=== PATIENT | male | born 1975 | race Caucasian/White ===

== ENCOUNTER 2022-05-17 15:35 | Observation (INO) ==
--- NOTE | 2022-05-17 17:26 | XRay Report ---
XR chest 1V not portable HISTORY: Sepsis COMPARISON: None. FINDINGS: The lungs are clear. Cardiac silhouette is normal in size. No pleural effusions. No pneumot horax. IMPRESSION: No acute process. ACT 112: Negative or not required by law. Electronically signed by: Chong Dangelo M.D. 05/17/2022 5:23 PM
[2022-05-17 19:52] LABS: Basophils # (auto) 0.03 K/uL (0-0.2); Basophils % (auto) 0.4 %; Eosinophils # (auto) 0.41 K/uL (0-0.50); Eosinophils % (auto) 5.7 %; Hematocrit (blood only) 43.1 % (42.0-52.0); Hemoglobin 14.6 g/dl (14.0-18.0); Immature Granulocytes # (auto) 0.02 K/uL (0.01-0.20); Immature Granulocytes % (auto) 0.3 %; Lymphocytes # (auto) 1.66 K/uL (1.2-3.4); Lymphocytes % (auto) 23.2 %; Mean Corpuscular Hemoglobin 29.9 pg (25.0-34.0); Mean Corpuscular Hgb Conc 33.9 g/dL (32.0-36.0); Mean Corpuscular Volume 88.1 fL (80.0-100.0); Mean Platelet Volume 9.9 fL (9.4-12.4); Monocytes # (auto) 0.65 K/uL (0.11-0.59); Monocytes % (auto) 9.1 %; Neutrophils # (auto) 4.37 K/uL (1.40-6.50); Neutrophils % (auto) 61.3 %; Platelet Count 248 K/uL (130-400); RDW Coefficient of Variation 12.6 % (11.5-14.5); RDW Standard Deviation 40.3 fL (36.4-46.3); Red Blood Count 4.89 M/uL (4.70-6.10); White Blood Count 7.14 K/ul (4.8-10.8)
[2022-05-17 20:08] LABS: Albumin Globulin Ratio 1.2 (0.9-2); Albumin Level 4.4 gm/dl (3.4-5.0); Bilirubin,Total 0.4 mg/dl (0.2-1.0); Calcium 9.5 mg/dl (8.6-10.3); Creatinine Clr Calc Pharmacy 178.4 ml/min; Est GFR (African American) 123.9 ml/min; Est GFR (Non-African American) 106.9 ml/min; Globulin 3.6 gm/dl (2.5-4.0); Potassium 3.9 mmol/L (3.5-5.1)
[2022-05-17 20:20] LABS: Partial Thromboplastin Time 28.2 Seconds (21.0-31.0); Prothrombin Time 10.9 Seconds (9.0-12.0)
[2022-05-17] MEDS ORDERED: DAPTOmycin 325 MG in SYRINGE 0 ML IV SCH (20:30)
--- NOTE | 2022-05-17 20:52 | Emergency Department Note ---
Impression & Plan Cellulitis of leg, right ED Provider Note INFORMANT: Patient ED PROVIDER(S): Shad Croft DO CHIEF COMPLAINT: Right leg cellulitis PLAN: Disposition: Admission Outpatient prescription management: none Discussion with: I spoke with the hospitalist, who will see the patient for admission/observation and further evaluation and consultation. MEDICAL DECISION MAKING: This is a 46-year-old male who presents to the ED with a chief complaint of concerns about right-sided leg cellulitis. The patient states that he had cellulitis a couple of weeks ago. He was placed on a 14-day course of doxycycline. He states that he is currently on the doxycycline. It seemed to improve transiently but worsened since Friday. He states that the redness has been increasingly worse since Friday despite the doxycycline. He also reports some discharge from a couple of places and lower extremity. No fevers. No nausea or vomiting. Presents today for evaluation. Exam reveals erythema, increased warmth and some edema. EKG shows a normal sinus rhythm. Lactic acid was negative. Procalcitonin was negative. Chest x-ray was negative for acute disease. CBC was normal. No leukocytosis or anemia. The patient was started on IV daptomycin. He is allergic to clindamycin. The patient will be seen by the hospitalist for further evaluation and care. Triage Nursing notes reviewed. Vital Signs: reviewed Prior /Outside records reviewed: none Differential diagnosis: Diagnostics, as interpreted by me: 12 lead ECG: Normal sinus rhythm rate of 79. No ST elevation. No PVCs. Normal QTc. Cardiac Monitoring ordered: none Medical decision rules: none Imaging studies: Chest x-ray: No acute disease. No pneumonia Procedures: none. Critical care: none. HPI: See MDM above. PAST MEDICAL HISTORY: See Below PAST SURGICAL HISTORY: See Below SOCIAL HISTORY: See Below HOME MEDICATIONS: See Below ALLERGIES: See Below VITALS: See Below PHYSICAL EXAMINATION: See MDM for positive findings otherwise unremarkable. CONSTITUTIONAL/VITAL SIGNS: Reviewed GENERAL:done as appropriate INTEGUMENTARY: done as appropriate HEAD: done as appropriate EYES: done as appropriate RESPIRATORY: done as appropriate CARDIOVASCULAR:done as appropriate GI/ABDOMEN:done as appropriate EXTREMITIES: done as appropriate NEUROLOGICAL: done as appropriate PSYCHIATRIC:done as appropriate MUSCULOSKELETAL:done as appropriate TRIAGE NURSING DOCUMENTATION REVIEWED. Past Med/Surg History Medical History (Updated 05/17/22 @ 20:52 by Shad Croft DO) Alcohol use Anxiety Asthma Bulging lumbar disc Depression HTN (hypertension) Obesity Sleep apnea Tobacco use disorder Surgical History Hx of appendectomy Family History Father Alcohol abuse Anxiety Drug abuse Hypertension Depression Brother Alcohol abuse Drug abuse Grandfather Alcohol abuse Mother Depression Social History Smoking Status: Never smoker Hx Alcohol Use: Yes Preferred Language: Tanzanian marital status: Current Living Situation: Spouse current occupational status: employed Feels Safe at Home: Yes Childhood Exposure to Second-Hand Smoke: Yes Dental Care, Regularly: Yes Physical Activity Frequency: Does not Exercise Seatbelt Use: always Allergies Allergies Allergy/AdvReac Type Severity Reaction Status Date / Time clindamycin Allergy Mild HIVES Verified 05/17/22 20:41 Home Meds Home Medications Medication Instructions Recorded Confirmed No Known Home Medications 05/17/22 05/17/22 Results & Data (ED) Vital Signs Vital Signs - 24 hr 05/17/22 15:51 05/17/22 19:11 05/17/22 18:35 Temperature 36.6 C Temperature Source Temporal Artery Scan Pulse Rate 96 H 78 Pulse Rate [Apical] Respiratory Rate 16 Respiratory Effort / Characteristics Respiratory Depth Normal Blood Pressure 159/94 H Blood Pressure [Right Arm] Blood Pressure Mean 115 Blood Pressure Mean [Right Arm] Pulse Oximetry 97 99 Oxygen Delivery Method Room Air Room Air Sepsis Recent Fever Within 48 Hours No Sepsis New/Unexplained Change in Mental Status No Sepsis Action Taken by Nursing No Action Required 05/17/22 18:35 05/17/22 19:26 05/17/22 19:24 Temperature Temperature Source Pulse Rate Pulse Rate [Apical] 77 78 Respiratory Rate 18 18 Respiratory Effort / Characteristics Non-Labored Non-Labored Spontaneous Respiratory Depth Normal Normal Blood Pressure Blood Pressure [Right Arm] 133/76 133/76 Blood Pressure Mean Blood Pressure Mean [Right Arm] 95 95 Pulse Oximetry 98 98 98 Oxygen Delivery Method Room Air Room Air Room Air Sepsis Recent Fever Within 48 Hours Sepsis New/Unexplained Change in Mental Status Sepsis Action Taken by Nursing Laboratory Data 05/17/22 19:10 05/17/22 19:10 Lab Results 05/17/22 05/17/2205/17/23 Range/Units 19:10 19:10 19:10 WBC 7.14 (4.8-10.8) K/ul RBC 4.89 (4.70-6.10) M/uL Hgb 14.6 (14.0-18.0) g/dl Hct 43.1 (42.0-52.0) % MCV 88.1 (80.0-100.0) fL MCH 29.9 (25.0-34.0) pg MCHC 33.9 (32.0-36.0) g/dL RDW Std Deviation 40.3 (36.4-46.3) fL RDW Coeff of Conrado 12.6 (11.5-14.5) % Plt Count 248 (130-400) K/uL MPV 9.9 (9.4-12.4) fL Immature Gran % (Auto) 0.3 % Neut % (Auto) 61.3 % Lymph % (Auto) 23.2 % [place] % (Auto) 9.1 % Eos % (Auto) 5.7 % Baso % (Auto) 0.4 % Neut # (Auto) 4.37 (1.40-6.50) K/uL Lymph # (Auto) 1.66 (1.2-3.4) K/uL [place] # (Auto) 0.65 H (0.11-0.59) K/uL Eos # (Auto) 0.41 (0-0.50) K/uL Baso # (Auto) 0.03 (0-0.2) K/uL Immature Gran # (Auto) 0.02 (0.01-0.20) K/uL PT 10.9 (9.0-12.0) Seconds INR 1.0 (0.9-1.1) APTT 28.2 (21.0-31.0) Seconds PTT Ratio 1.0 Sodium 140 (136-145) mmol/L Potassium 3.9 (3.5-5.1) mmol/L Chloride 106 (98-107) mmol/L Carbon Dioxide 27 (21-32) mmol/L Anion Gap 7 (3-11) BUN 15 (6-23) mg/dl Creatinine 0.79 (0.6-1.4) mg/dl Est Cr Clr Drug Dosing 178.4 ml/min Est GFR ( Amer) 123.9 ml/min Est GFR (Non-Af Amer) 106.9 ml/min BUN/Creatinine Ratio 19.0 (10-20) Glucose 90 (70-99(Fasting)) mg/dl Lactate (0.4-2.0) mmol/L Calcium 9.5 (8.6-10.3) mg/dl Magnesium 2.0 (1.7-2.4) mg/dl Total Bilirubin 0.4 (0.2-1.0) mg/dl AST 43 H (13-39) U/L ALT 34 (7-52) U/L Alkaline Phosphatase 62 (34-104) U/L Total Protein 8.0 (6.0-8.3) gm/dl Albumin 4.4 (3.4-5.0) gm/dl Globulin 3.6 (2.5-4.0) gm/dl Albumin/Globulin Ratio 1.2 (0.9-2) Procalcitonin (0-0.5) ng/ml 05/17/22 05/17/22 Range/Units 19:10 19:10 WBC (4.8-10.8) K/ul RBC (4.70-6.10) M/uL Hgb (14.0-18.0) g/dl Hct (42.0-52.0) % MCV (80.0-100.0) fL MCH (25.0-34.0) pg MCHC (32.0-36.0) g/dL RDW Std Deviation (36.4-46.3) fL RDW Coeff of Conrado (11.5-14.5) % Plt Count (130-400) K/uL MPV (9.4-12.4) fL Immature Gran % (Auto) % Neut % (Auto) % Lymph % (Auto) % [place] % (Auto) % Eos % (Auto) % Baso % (Auto) % Neut # (Auto) (1.40-6.50) K/uL Lymph # (Auto) (1.2-3.4) K/uL [place] # (Auto) (0.11-0.59) K/uL Eos # (Auto) (0-0.50) K/uL Baso # (Auto) (0-0.2) K/uL Immature Gran # (Auto) (0.01-0.20) K/uL PT (9.0-12.0) Seconds INR (0.9-1.1) APTT (21.0-31.0) Seconds PTT Ratio Sodium (136-145) mmol/L Potassium (3.5-5.1) mmol/L Chloride (98-107) mmol/L Carbon Dioxide (21-32) mmol/L Anion Gap (3-11) BUN (6-23) mg/dl Creatinine (0.6-1.4) mg/dl Est Cr Clr Drug Dosing ml/min Est GFR ( Amer) ml/min Est GFR (Non-Af Amer) ml/min BUN/Creatinine Ratio (10-20) Glucose (70-99(Fasting)) mg/dl Lactate 1.7 (0.4-2.0) mmol/L Calcium (8.6-10.3) mg/dl Magnesium (1.7-2.4) mg/dl Total Bilirubin (0.2-1.0) mg/dl AST (13-39) U/L ALT (7-52) U/L Alkaline Phosphatase (34-104) U/L Total Protein (6.0-8.3) gm/dl Albumin (3.4-5.0) gm/dl Globulin (2.5-4.0) gm/dl Albumin/Globulin Ratio (0.9-2) Procalcitonin < 0.05 (0-0.5) ng/ml Imaging Data Radiologist's Impression: Chest X-Ray 05/17/22 15:54 XR chest 1V not portable HISTORY: Sepsis COMPARISON: None. FINDINGS: The lungs are clear. Cardiac silhouette is normal in size. No pleural effusions. No pneumothorax. IMPRESSION: No acute process. ACT 112: Negative or not required by law. Electronically signed by: Chong Dangelo M.D. 05/17/2022 5:23 PM Discharge Plan Visit Data Chief Complaint: Leg Injury/Pain Stated Complaint: CELLULITUS IN LEG ED Provider: Shad Croft Discharge Problem: Cellulitis of leg, right Forms Stand Alone Forms: [facility] [employer] Prescriptions Prescriptions: No Action No Known Home Medications Referrals Referrals: Ugo Swann MD [Primary Care Provider] -
[2022-05-17] MEDS ORDERED: CEFEPIME 2,000 MG/20 ML VIAL IV STA (20:56)
--- NOTE | 2022-05-17 20:57 | History & Physical Report ---
Date of Service May 17, 2022 Assessment & Plan (1) Cellulitis of leg, right: Plan: 46-year-old male with history of newly diagnosed diabetes presenting with right lower extremity cellulitis. Patient is afebrile, nontoxic in appearance. He reports that the redness, swelling and tenderness of his right lower extremity has worsened despite being on oral doxycycline. He also reports small abscesses on his LE which have broken open - purulent fluid. Observation to medical Continue daptomycin Continue cefepime for now Mick area of cellulitis daily Tylenol as needed for pain or fever (2) Diabetes: Plan: Patient with newly diagnosed diabetes approximately 1 year ago. He reports that he is not taking any medication at this time. He has been using [id number] supplements such as cinnamon to help regulate his blood sugar. Blood sugar controlled at this time at 90 Consult cosmetology educator Check HgbA1C -Check Lipid panel Patient may need assistance establishing with a new PCP. He lives in [place]. (3) Sleep apnea: Plan: Patient does not use CPAP (4) HTN (hypertension): Plan: Mildly elevated blood pressure at present. Patient does not take any medications for blood pressure at this time Continue to monitor F/E/NHep-Lock, monitor electrolytes and replete as needed, carb consistent diet as tolerated Prophylaxisencourage ambulation Codefull per discussion with patient Disposition Observation to medical History of Present Illness Chief Complaint: RLE cellulitis Primary Care Provider: Ugo Swann MD Wali Pearson is a 46yo male with history of HTN, Asthma, newly diagnosed DM presenting with RLE cellulitis. Patient gets frequent tinea pedis in fections. He reports that when he has a tinea infection he frequently develops cellulitis in his RLE. Patient has had several days of worsening RLE warmth, redness and swelling. He reports developing a small abscess on his posterior calf. He was seen at [facility] approximate 2 and half weeks ago and was prescribed antibioticdoxycycline, which he has taken. He reports developing several more abscesses that opened and drained a small amount of purulent liquid. as prescribed patient denies trauma to the leg. Denies fever, chills, nausea, malaise. Denies chest pain, shortness of breath, cough. No additional complaints at this time. Concerned that his cellulitis is worsening despite treatment with doxycycline Patient was recently diagnosed with type 2 diabetes approximately 1 year ago. He reports he has been prescribed metformin which she does not take. He has been using cinnamon supplements and changing his diet in hopes to control his blood sugar. He has not seen his PCP for some time. Reports he has not received education on his diabetes management. In the ER, he is afebrile hemodynamically stable and nontoxic in appearance. ER course: Daptomycin Cefepime Allergies Allergy/AdvReac Type Severity Reaction Status Date / Time clindamycin Allergy Mild HIVES Verified 05/17/22 20:41 Home Medications Medication Instructions Recorded Confirmed Type No Known Home Medications 05/17/22 05/17/22 History Past Med/Surg History Medical History (Updated 05/18/22 @ 00:43 by Sanaz Wright DO) Alcohol use Anxiety Asthma Bulging lumbar disc Depression Diabetes HTN (hypertension) Obesity Sleep apnea Tobacco use disorder Surgical History Hx of appendectomy Family History Father Alcohol abuse Anxiety Drug abuse Hypertension Depression Brother Alcohol abuse Drug abuse Grandfather Alcohol abuse Mother Depression Social History Smoking Status: Never smoker Second Hand Exposure: No; Do You Dip or Chew Tobacco: No; Hx Alcohol Use: Yes Alcohol type: beer Hx Substance Use: Yes Last Used Substance Other:: occasionally Preferred Language: Yoruba Communication Ability: Effective Landscape Laborer Required: No Beliefs That Will Affect Care: None marital status: Current Living Situation: Alone current occupational status: employed Other Information That Helps Us Care for You: No Feels Safe at Home: Yes Safety Concerns: Feels Safe At This Time Childhood Exposure to Second-Hand Smoke: Yes Dental Care, Regularly: Yes Physical Activity Frequency: Does not Exercise Seatbelt Use: always Assistive Devices: Cane Assistive Devices Comment: uses cane occasional when cellulitis is bothering him Review of Systems Review of Systems: All systems reviewed & are unremarkable except as noted in HPI & below Physical Exam Physical Exam: General: patient resting comfortably, NAD, non-toxic in appearance, AA&O x 4 HEENT: NC/AT, PERRL, EOMI, anicteric sclera, conjunctiva without injection, external ear normal to inspection and nontender, nares patent, moist mucus membranes, dentition intact, no oropharyngeal lesions, neck supple, trachea midline, no LAD, no thyromegaly, no JVD Heart: +S1/S2, regular, no m/r/g Lungs: equal air entry bilaterally, no rales/rhonchi/wheezes Abd: +BS, soft, NT/ND, no masses/organomegaly/ascites Ext: warm, 2+ pulses in UE/LE bilaterally, no clubbing/cyanosis. Trace edema of bilateral lower extremities, right lower extremity red, warm and tender to the touch.No crepitus, bullae or lymphangitis Neuro: nonfocal, patient AA&O x 4, speech intact, no facial droop, moving all extremities on command with equal strength 5/5 Results & Data Results & Data Vital Signs (Past 12 Hours) Vital Signs Temp Pulse Pulse Resp BP BP Pulse Ox 05/17/22 19:24 78 18 133/76 98 05/17/22 19:26 77 18 133/76 98 05/17/22 18:35 98 05/17/22 18:35 99 05/17/22 19:11 78 05/17/22 15:51 36.6 C 96 H 16 159/94 H 97 O2 Del Method 05/17/22 19:24 Room Air 05/17/22 19:26 Room Air 05/17/22 18:35 Room Air 05/17/22 18:35 Room Air 05/17/22 19:11 05/17/22 15:51 Room Air Laboratory Results Laboratory Results WBC 7.14 K/ul (4.8-10.8) 05/17/22 19:10 RBC 4.89 M/uL (4.70-6.10) 05/17/22 19:10 Hgb 14.6 g/dl (14.0-18.0) 05/17/22 19:10 Hct 43.1 % (42.0-52.0) 05/17/22 19:10 MCV 88.1 fL (80.0-100.0) 05/17/22 19:10 MCH 29.9 pg (25.0-34.0) 05/17/22 19:10 MCHC 33.9 g/dL (32.0-36.0) 05/17/22 19:10 RDW Std Deviation 40.3 fL (36.4-46.3) 05/17/22 19:10 RDW Coeff of Conrado 12.6 % (11.5-14.5) 05/17/22 19:10 Plt Count 248 K/uL (130-400) 05/17/22 19:10 MPV 9.9 fL (9.4-12.4) 05/17/22 19:10 Immature Gran % (Auto) 0.3 % 05/17/22 19:10 Neut % (Auto) 61.3 % 05/17/22 19:10 Lymph % (Auto) 23.2 % 05/17/22 19:10 [place] % (Auto) 9.1 % 05/17/22 19:10 Eos % (Auto) 5.7 % 05/17/22 19:10 Baso % (Auto) 0.4 % 05/17/22 19:10 Neut # (Auto) 4.37 K/uL (1.40-6.50) 05/17/22 19:10 Lymph # (Auto) 1.66 K/uL (1.2-3.4) 05/17/22 19:10 [place] # (Auto) 0.65 K/uL (0.11-0.59) H 05/17/22 19:10 Eos # (Auto) 0.41 K/uL (0-0.50) 05/17/22 19:10 Baso # (Auto) 0.03 K/uL (0-0.2) 05/17/22 19:10 Immature Gran # (Auto) 0.02 K/uL (0.01-0.20) 05/17/22 19:10 PT 10.9 Seconds (9.0-12.0) 05/17/22 19:10 INR 1.0 (0.9-1.1) 05/17/22 19:10 APTT 28.2 Seconds (21.0-31.0) 05/17/22 19:10 PTT Ratio 1.0 05/17/22 19:10 Sodium 140 mmol/L (136-145) 05/17/22 19:10 Potassium 3.9 mmol/L (3.5-5.1) 05/17/22 19:10 Chloride 106 mmol/L (98-107) 05/17/22 19:10 Carbon Dioxide 27 mmol/L (21-32) 05/17/22 19:10 Anion Gap 7 (3-11) 05/17/22 19:10 BUN 15 mg/dl (6-23) 05/17/22 19:10 Creatinine 0.79 mg/dl (0.6-1.4) 05/17/22 19:10 Est Cr Clr Drug Dosing 178.4 ml/min 05/17/22 19:10 Est GFR ( Amer) 123.9 ml/min 05/17/22 19:10 Est GFR (Non-Af Amer) 106.9 ml/min 05/17/22 19:10 BUN/Creatinine Ratio 19.0 (10-20) 05/17/22 19:10 Glucose 90 mg/dl (70-99(Fasting)) 05/17/22 19:10 Lactate 1.7 mmol/L (0.4-2.0) 05/17/22 19:10 Calcium 9.5 mg/dl (8.6-10.3) 05/17/22 19:10 Magnesium 2.0 mg/dl (1.7-2.4) 05/17/22 19:10 Total Bilirubin 0.4 mg/dl (0.2-1.0) 05/17/22 19:10 AST 43 U/L (13-39) H 05/17/22 19:10 ALT 34 U/L (7-52) 05/17/22 19:10 Alkaline Phosphatase 62 U/L (34-104) 05/17/22 19:10 Total Protein 8.0 gm/dl (6.0-8.3) 05/17/22 19:10 Albumin 4.4 gm/dl (3.4-5.0) 05/17/22 19:10 Globulin 3.6 gm/dl (2.5-4.0) 05/17/22 19:10 Albumin/Globulin Ratio 1.2 (0.9-2) 05/17/22 19:10 Procalcitonin < 0.05 ng/ml (0-0.5) 05/17/22 19:10 SARS-CoV-2, RNA, NAAT NEGATIVE (NEGATIVE) 05/17/22 21:05 Impressions Chest X-Ray 05/17/22 15:54 XR chest 1V not portable HISTORY: Sepsis COMPARISON: None. FINDINGS: The lungs are clear. Cardiac silhouette is normal in size. No pleural effusions. No pneumothorax. IMPRESSION: No acute process. ACT 112: Negative or not required by law. Electronically signed by: Chong Dangelo M.D. 05/17/2022 5:23 PM PG Care Time/CCT Total # of Minutes Spent Total Time Spent with Patient: Total time spent is greater than 50% in coordination of care (as documented) at patient's floor/unit and/or counseling patient: Coding Level of Care Code 44600 INT INP/OBS CARE 2/55MIN Diagnoses Cellulitis of leg, right L03.115 Diabetes E11.9 Sleep apnea G47.30 HTN (hypertension) I10
[2022-05-17] MEDS ORDERED: GLUCOSE 10 TAB/TUBE PO PRN (23:10)
[2022-05-17] MEDS ORDERED: GLUCAGON FOR INJ 1 MG VIAL SQ PRN (23:10)
[2022-05-17] MEDS ORDERED: GLUCOSE 40% GEL 15 GM TUBE PO PRN (23:10)
[2022-05-17] MEDS ORDERED: CARBOHYDRATES FOR HYPOGLYCEMIA PO PRN (23:10)
[2022-05-17] MEDS ORDERED: DEXTROSE 50% 50 ML SYRINGE IV PRN (23:10)
[2022-05-17] MEDS ORDERED: ONDANSETRON INJ 2 MG/ML 2 ML VIAL IV PRN (23:10)
[2022-05-17] MEDS ORDERED: DAPTOmycin 125 MG in SYRINGE 0 ML IV ONE (23:45)
[2022-05-18] MEDS: ACETAMINOPHEN 325 MG TAB PO PRN (05:39)
[2022-05-18 07:59] LABS: Hematocrit (blood only) 40.3 % (42.0-52.0); Hemoglobin 13.6 g/dl (14.0-18.0); Mean Corpuscular Hemoglobin 29.4 pg (25.0-34.0); Mean Corpuscular Hgb Conc 33.7 g/dL (32.0-36.0); Mean Platelet Volume 9.8 fL (9.4-12.4); Platelet Count 209 K/uL (130-400); RDW Coefficient of Variation 12.5 % (11.5-14.5); RDW Standard Deviation 39.5 fL (36.4-46.3); Red Blood Count 4.63 M/uL (4.70-6.10); White Blood Count 6.77 K/ul (4.8-10.8)
[2022-05-18 08:23] LABS: Albumin Level 3.7 gm/dl (3.4-5.0); BUN Creatinine Ratio 14.5 (10-20); Bilirubin Direct 0.1 mg/dl (0-0.2); Bilirubin,Total 0.7 mg/dl (0.2-1.0); Calcium 8.7 mg/dl (8.6-10.3); Chol HDL Ratio 2.6 (0-5); Creatinine Clr Calc Pharmacy 175.4 ml/min; Est GFR (African American) 121.4 ml/min; Est GFR (Non-African American) 104.8 ml/min; Potassium 3.8 mmol/L (3.5-5.1); Total Protein 6.8 gm/dl (6.0-8.3)
[2022-05-18 08:59] LABS: C Reactive Protein 1.24 mg/dl (0-0.5)
--- NOTE | 2022-05-18 09:02 | Hospitalist Progress Note ---
Date of Service May 18, 2022 Assessment & Plan (1) Cellulitis of leg, right: Plan: 46-year-old male with history of newly diagnosed diabetes presenting with right lower extremity cellulitis. Patient is afebrile, nontoxic in appearance. He reports that the redness, swelling and tenderness of his right lower extremity has worsened despite being on oral doxycycline. He also reports small abscesses on his LE which have broken open - purulent fluid. Patient reported having old rx for DOxy, taking. Seen at [place], abscess not yet broken open but US performed reportedly and given Doxy for abscess and told good penetration. Prior cx w/ Pseudomonas/Group B beta strep in Oct 2018 Remains on Dapto/Cefepime as started on admission WBC wnl, afebrile Blood cultures pending Marked area cellulitis, within markings Pain control/antiemetics prn Asked RN to culture drainage from RLE -- monitor culture/tailor abx as appropriate added ESR/CRP and elevated 30/1.[address] LE for further eval of abscess/ortho consult pending results Consideration for dose lasix as well to assist with swelling in AM but will monitor kidney function given contrast Asked RN to elevate RLE w/ pillow Monitor labs in AM/clinical improvement on repeat exams (2) Diabetes: Plan: Patient with newly diagnosed diabetes approximately 1 year ago., BSGs in 230s at that time and quit soda/ice cream and recently running in 120s per patient. Has been using OTC like cinnamon to help w/ regulation, not on any rx meds A1c 6.0 on AM labs Lipid panel w/ excellent control -- TRG 35, Chol 80, HDL 31 DM educator consulted however again, excellent control Will ask CM to assist with arranging new PCP in follow up (lives in [place], of note just passed from covid - may need to consider SSRI/remeron/etc) (3) Sleep apnea: Plan: Patient does not use CPAP rec f/u (4) HTN (hypertension): Plan: BP 133/80 currently and stable (elevated on admit in setting of pain -- 159/94) Doesn't take any meds at baseline -- monitor/will need new PCP. No significant LVH on admitting EKG Plan continued inpatient stay on abx/ monitor cultures obtain CT of leg for further eval/possible ortho consult if needed CM to assist w/ arranging new PCP Admission and Anticipated Discharge Date Admission Date: May 17, 2022 Supervising Physician Co-Signing Physician Notes The patient was not seen by me. The chart was reviewed. Case discussed with ZEINAB Odonnell. Agree with assessment and plan Subjective Eval this morning, doing alright. Pain w/ ambulation to bathroom, improving once leg back up in bed. Discussed pillow for elevation. He has hx cellulitis, denies any trauma/injury. Had Doxy leftover and was taking and see at [facility], believes had US and showed abscess and sent on PO Doxy. Took course and was getting a little better but then abscess on back of leg opened up and has not had any improvement since that time. Discussed obtaining CT imaging for further eval, cx obtained this morning. Never had abscesses like this before. Has two openings to anterior hamilton and one posteriorly. No fever, chills, chest pain, shortness of breath. Anxious about his dogs at home but quirino checking on them currently, didn't anticipate staying long. Hopefully will be able to get CT/monitor cultures/elevate and have more info for tomorrow but possible dc in next 24-48 hours, but could be more like Friday. Patient understood, agreeable to plan. Questions/concerns addressed at this time. Review of Systems Review of Systems: All systems reviewed & are unremarkable except as noted in HPI & below Physical Exam Physical Exam: General: WD/WN obese male sleeping upon entry, NAD HEENT: head normocephalic, atraumatic Resp: diminished in bases, no w/c, on room air, speaking in complete sentences, no distress CV: RRR, no significant m/r/g, LE edema (RLE>LLE 2nd to cellulitis, pulses palpable but diminished in setting of swelling) GI: +BS, obese, nontender : no mcgowan MSK/Neuro/skin: no focal deficit, no facial droop/slurred speech RLE with swelling, violacious color surrounding multiple wounds -- 2 opening to anterior hamilton (optifoam in place, yellowish drainage on dressing), and 1 posterior calf (similarly appearing), skin tense/swollen, slight warmth, erythema within markings Psych: AOx3, pleasant and cooperative with care but disappointed about staying Results & Data Results & Data Vital Signs (Past 12 Hours) Vital Signs Temp Pulse Pulse Pulse Resp BP BP 05/18/22 07:39 36.5 C 63 16 133/80 05/17/22 22:45 36.6 C 62 18 145/87 H 05/17/22 22:30 71 18 164/95 H 05/17/22 22:00 68 16 Pulse Ox O2 Del Method 05/18/22 07:39 95 Room Air 05/17/22 22:45 97 Room Air 05/17/22 22:30 97 Room Air 05/17/22 22:00 97 Room Air Laboratory Results 05/18/22 05/18/22 05/18/22 Range/Units 12:05 08:17 07:25 WBC (4.8-10.8) K/ul RBC (4.70-6.10) M/uL Hgb (14.0-18.0) g/dl Hct (42.0-52.0) % MCV (80.0-100.0) fL MCH (25.0-34.0) pg MCHC (32.0-36.0) g/dL RDW Std Deviation (36.4-46.3) fL RDW Coeff of [place]rado (11.5-14.5) % Plt Count (130-400) K/uL MPV (9.4-12.4) fL Immature Gran % (Auto) % Neut % (Auto) % Lymph % (Auto) % [place] % (Auto) % Eos % (Auto) % Baso % (Auto) % Neut # (Auto) (1.40-6.50) K/uL Lymph # (Auto) (1.2-3.4) K/uL [place] # (Auto) (0.11-0.59) K/uL Eos # (Auto) (0-0.50) K/uL Baso # (Auto) (0-0.2) K/uL Immature Gran # (Auto) (0.01-0.20) K/uL ESR 30 H (0-15) mm/hr PT (9.0-12.0) Seconds INR (0.9-1.1) APTT (21.0-31.0) Seconds PTT Ratio Sodium (136-145) mmol/L Potassium (3.5-5.1) mmol/L Chloride (98-107) mmol/L Carbon Dioxide (21-32) mmol/L Anion Gap (3-11) BUN (6-23) mg/dl Creatinine (0.6-1.4) mg/dl Est Cr Clr Drug Dosing ml/min Est GFR ( Amer) ml/min Est GFR (Non-Af Amer) ml/min BUN/Creatinine Ratio (10-20) Glucose (70-99(Fasting)) mg/dl POC Glucose 117 H 95 (70-99) mg/dl Estimat Average Glucose mg/dl Hemoglobin A1c (4.5-5.6) % Lactate (0.4-2.0) mmol/L Calcium (8.6-10.3) mg/dl Magnesium (1.7-2.4) mg/dl Total Bilirubin (0.2-1.0) mg/dl Direct Bilirubin (0-0.2) mg/dl AST (13-39) U/L ALT (7-52) U/L Alkaline Phosphatase (34-104) U/L C-Reactive Protein (0-0.5) mg/dl Total Protein (6.0-8.3) gm/dl Albumin (3.4-5.0) gm/dl Globulin (2.5-4.0) gm/dl Albumin/Globulin Ratio (0.9-2) Triglycerides (0-150) mg/dl Cholesterol (0-200) mg/dl LDL Cholesterol, Calc mg/dl VLDL Cholesterol, Calc (0-30) mg/dl HDL Cholesterol mg/dl Cholesterol/HDL Ratio (0-5) Procalcitonin (0-0.5) ng/ml SARS-CoV-2, RNA, NAAT (NEGATIVE) 05/18/22 05/18/22 05/18/22 Range/Units 07:25 07:25 07:25 WBC 6.77 (4.8-10.8) K/ul RBC 4.63 L (4.70-6.10) M/uL Hgb 13.6 L (14.0-18.0) g/dl Hct 40.3 L (42.0-52.0) % MCV 87.0 (80.0-100.0) fL MCH 29.4 (25.0-34.0) pg MCHC 33.7 (32.0-36.0) g/dL RDW Std Deviation 39.5 (36.4-46.3) fL RDW Coeff of Conrado 12.5 (11.5-14.5) % Plt Count 209 (130-400) K/uL MPV 9.8 (9.4-12.4) fL Immature Gran % (Auto) % Neut % (Auto) % Lymph % (Auto) % [place] % (Auto) % Eos % (Auto) % Baso % (Auto) % Neut # (Auto) (1.40-6.50) K/uL Lymph # (Auto) (1.2-3.4) K/uL [place] # (Auto) (0.11-0.59) K/uL Eos # (Auto) (0-0.50) K/uL Baso # (Auto) (0-0.2) K/uL Immature Gran # (Auto) (0.01-0.20) K/uL ESR (0-15) mm/hr PT (9.0-12.0) Seconds INR (0.9-1.1) APTT (21.0-31.0) Seconds PTT Ratio Sodium 139 (136-145) mmol/L Potassium 3.8 (3.5-5.1) mmol/L Chloride 105 (98-107) mmol/L Carbon Dioxide 30 (21-32) mmol/L Anion Gap 4 (3-11) BUN 12 (6-23) mg/dl Creatinine 0.83 (0.6-1.4) mg/dl Est Cr Clr Drug Dosing 175.4 ml/min Est GFR ( Amer) 121.4 ml/min Est GFR (Non-Af Amer) 104.8 ml/min BUN/Creatinine Ratio 14.5 (10-20) Glucose 96 (70-99(Fasting)) mg/dl POC Glucose (70-99) mg/dl Estimat Average Glucose 126 mg/dl Hemoglobin A1c 6.0 H (4.5-5.6) % Lactate (0.4-2.0) mmol/L Calcium 8.7 (8.6-10.3) mg/dl Magnesium (1.7-2.4) mg/dl Total Bilirubin 0.7 (0.2-1.0) mg/dl Direct Bilirubin 0.1 (0-0.2) mg/dl AST 35 (13-39) U/L ALT 28 (7-52) U/L Alkaline Phosphatase 49 (34-104) U/L C-Reactive Protein 1.24 H (0-0.5) mg/dl Total Protein 6.8 (6.0-8.3) gm/dl Albumin 3.7 (3.4-5.0) gm/dl Globulin (2.5-4.0) gm/dl Albumin/Globulin Ratio (0.9-2) Triglycerides 35 (0-150) mg/dl Cholesterol 80 (0-200) mg/dl LDL Cholesterol, Calc 42 mg/dl VLDL Cholesterol, Calc 7 (0-30) mg/dl HDL Cholesterol 31 mg/dl Cholesterol/HDL Ratio 2.6 (0-5) Procalcitonin (0-0.5) ng/ml SARS-CoV-2, RNA, NAAT (NEGATIVE) 05/17/22 05/17/22 05/17/22 Range/Units 21:05 19:10 19:10 WBC (4.8-10.8) K/ul RBC (4.70-6.10) M/uL Hgb (14.0-18.0) g/dl Hct (42.0-52.0) % MCV (80.0-100.0) fL MCH (25.0-34.0) pg MCHC (32.0-36.0) g/dL RDW Std Deviation (36.4-46.3) fL RDW Coeff of Conrado (11.5-14.5) % Plt Count (130-400) K/uL MPV (9.4-12.4) fL Immature Gran % (Auto) % Neut % (Auto) % Lymph % (Auto) % [place] % (Auto) % Eos % (Auto) % Baso % (Auto) % Neut # (Auto) (1.40-6.50) K/uL Lymph # (Auto) (1.2-3.4) K/uL [place] # (Auto) (0.11-0.59) K/uL Eos # (Auto) (0-0.50) K/uL Baso # (Auto) (0-0.2) K/uL Immature Gran # (Auto) (0.01-0.20) K/uL ESR (0-15) mm/hr PT (9.0-12.0) Seconds INR (0.9-1.1) APTT (21.0-31.0) Seconds PTT Ratio Sodium (136-145) mmol/L Potassium (3.5-5.1) mmol/L Chloride (98-107) mmol/L Carbon Dioxide (21-32) mmol/L Anion Gap (3-11) BUN (6-23) mg/dl Creatinine (0.6-1.4) mg/dl Est Cr Clr Drug Dosing ml/min Est GFR ( Amer) ml/min Est GFR (Non-Af Amer) ml/min BUN/Creatinine Ratio (10-20) Glucose (70-99(Fasting)) mg/dl POC Glucose (70-99) mg/dl Estimat Average Glucose mg/dl Hemoglobin A1c (4.5-5.6) % Lactate 1.7 (0.4-2.0) mmol/L Calcium (8.6-10.3) mg/dl Magnesium (1.7-2.4) mg/dl Total Bilirubin (0.2-1.0) mg/dl Direct Bilirubin (0-0.2) mg/dl AST (13-39) U/L ALT (7-52) U/L Alkaline Phosphatase (34-104) U/L C-Reactive Protein (0-0.5) mg/dl Total Protein (6.0-8.3) gm/dl Albumin (3.4-5.0) gm/dl Globulin (2.5-4.0) gm/dl Albumin/Globulin Ratio (0.9-2) Triglycerides (0-150) mg/dl Cholesterol (0-200) mg/dl LDL Cholesterol, Calc mg/dl VLDL Cholesterol, Calc (0-30) mg/dl HDL Cholesterol mg/dl Cholesterol/HDL Ratio (0-5) Procalcitonin < 0.05 (0-0.5) ng/ml SARS-CoV-2, RNA, NAAT NEGATIVE (NEGATIVE) 05/17/22 05/17/22 05/17/22 Range/Units 19:10 19:10 19:10 WBC 7.14 (4.8-10.8) K/ul RBC 4.89 (4.70-6.10) M/uL Hgb 14.6 (14.0-18.0) g/dl Hct 43.1 (42.0-52.0) % MCV 88.1 (80.0-100.0) fL MCH 29.9 (25.0-34.0) pg MCHC 33.9 (32.0-36.0) g/dL RDW Std Deviation 40.3 (36.4-46.3) fL RDW Coeff of Conrado 12.6 (11.5-14.5) % Plt Count 248 (130-400) K/uL MPV 9.9 (9.4-12.4) fL Immature Gran % (Auto) 0.3 % Neut % (Auto) 61.3 % Lymph % (Auto) 23.2 % [place] % (Auto) 9.1 % Eos % (Auto) 5.7 % Baso % (Auto) 0.4 % Neut # (Auto) 4.37 (1.40-6.50) K/uL Lymph # (Auto) 1.66 (1.2-3.4) K/uL [place] # (Auto) 0.65 H (0.11-0.59) K/uL Eos # (Auto) 0.41 (0-0.50) K/uL Baso # (Auto) 0.03 (0-0.2) K/uL Immature Gran # (Auto) 0.02 (0.01-0.20) K/uL ESR (0-15) mm/hr PT 10.9 (9.0-12.0) Seconds INR 1.0 (0.9-1.1) APTT 28.2 (21.0-31.0) Seconds PTT Ratio 1.0 Sodium 140 (136-145) mmol/L Potassium 3.9 (3.5-5.1) mmol/L Chloride 106 (98-107) mmol/L Carbon Dioxide 27 (21-32) mmol/L Anion Gap 7 (3-11) BUN 15 (6-23) mg/dl Creatinine 0.79 (0.6-1.4) mg/dl Est Cr Clr Drug Dosing 178.4 ml/min Est GFR ( Amer) 123.9 ml/min Est GFR (Non-Af Amer) 106.9 ml/min BUN/Creatinine Ratio 19.0 (10-20) Glucose 90 (70-99(Fasting)) mg/dl POC Glucose (70-99) mg/dl Estimat Average Glucose mg/dl Hemoglobin A1c (4.5-5.6) % Lactate (0.4-2.0) mmol/L Calcium 9.5 (8.6-10.3) mg/dl Magnesium 2.0 (1.7-2.4) mg/dl Total Bilirubin 0.4 (0.2-1.0) mg/dl Direct Bilirubin (0-0.2) mg/dl AST 43 H (13-39) U/L ALT 34 (7-52) U/L Alkaline Phosphatase 62 (34-104) U/L C-Reactive Protein (0-0.5) mg/dl Total Protein 8.0 (6.0-8.3) gm/dl Albumin 4.4 (3.4-5.0) gm/dl Globulin 3.6 (2.5-4.0) gm/dl Albumin/Globulin Ratio 1.2 (0.9-2) Triglycerides (0-150) mg/dl Cholesterol (0-200) mg/dl LDL Cholesterol, Calc mg/dl VLDL Cholesterol, Calc (0-30) mg/dl HDL Cholesterol mg/dl Cholesterol/HDL Ratio (0-5) Procalcitonin (0-0.5) ng/ml SARS-CoV-2, RNA, NAAT (NEGATIVE) Diagnostic Findings Chest X-Ray 05/17/22 15:54 XR chest 1V not portable HISTORY: Sepsis COMPARISON: None. FINDINGS: The lungs are clear. Cardiac silhouette is normal in size. No pleural effusions. No pneumothorax. IMPRESSION: No acute process. ACT 112: Negative or not required by law. Electronically signed by: Chong Dangelo M.D. 05/17/2022 5:23 PM PG Care Time/CCT Total # of Minutes Spent Total Time Spent with Patient: Total time spent is greater than 50% in coordination of care (as documented) at patient's floor/unit and/or counseling patient: Coding Level of Care Code 64249 SUB INP/OBS CARE 3/50MIN Diagnoses Cellulitis of leg, right L03.115 Diabetes E11.9 Sleep apnea G47.30 HTN (hypertension) I10
[2022-05-18] MEDS: CEFEPIME 2,000 MG in SYRINGE 0 ML IV SCH ×2 (09:19→21:17)
[2022-05-18 09:46] LABS: Estimated Average Glucose 126 mg/dl
--- NOTE | 2022-05-18 12:24 | Electrocardiogram Report ---
Test Reason : Blood Pressure : / mmHG Vent. Rate : 079 BPM Atrial Rate : 079 BPM P-R Int : 198 ms QRS Dur : 126 ms QT Int : 382 ms P-R-T Axes : 046 -06 022 degrees QTc Int : 438 ms Normal sinus rhythm Non-specific intra-ventricular conduction block Abnormal ECG No previous ECGs available Confirmed by King Faust [id number]) on 05/18/2022 12:24:41 PM Referred By: REFERRED SELF Confirmed By:King Faust
[2022-05-18] MEDS ORDERED: oxyCODONE HCL IR 5 MG TAB (IMMEDIATE RELEASE) PO PRN (14:11)
[2022-05-18] MEDS ORDERED: OPTIRAY 350 100ml IV ONE (15:00)
[2022-05-18] MEDS ORDERED: LORazepam 0.5 MG TAB PO PRN (16:58)
--- NOTE | 2022-05-18 17:43 | CT Scan Report ---
CT SCAN OF THE RIGHT TIBIA AND FIBULA WITH IV CONTRAST CLINICAL HISTORY: Cellulitis. COMPARISON STUDY: No priors. TECHNIQUE: Following the administration of 84 cc of Optiray 350, CT scan of the right tibia and fibul a is performed from the distal femur to the foot. Images are reviewed in the axial, sagittal, and cor onal planes. IV contrast was administered without complication. A dose lowering technique was utilize d adhering to the principles of ALARA. CT DOSE: 289.01 mGy.cm FINDINGS: The skeletal structures are well-mineralized. There is no evidence of right tibial or fibul ar fracture. There is no bony erosion or periostitis. The knee and ankle joints are grossly maintaine d. There is no knee joint effusion. Subcutaneous soft tissue edema and fluid is seen throughout the r ight lower extremity. No organized/drainable fluid collection is seen to indicate abscess. The region al arteries are patent as visualized. The Achilles tendon is intact as seen by CT. There is mild gene ralized atrophy of the regional musculature. No soft tissue gas is seen. Phleboliths are noted in the anterior calf. IMPRESSION: 1. No acute bony abnormality is seen involving the right tibia or fibula. 2. There is evidence of cellulitis throughout the right lower extremity. 3. No organized/drainable fluid collection is seen to suggest abscess. ACT 112: Negative or not required by law. Electronically signed by: Gonzales Bates M.D. 05/18/2022 5:41 PM
[2022-05-18] MEDS: GABAPENTIN 100 MG CAP PO SCH (21:17)
[2022-05-18] MEDS: DAPTOmycin 450 MG in SYRINGE 0 ML IV SCH (21:18)
[2022-05-19 06:46] LABS: Mean Corpuscular Hemoglobin 29.5 pg (25.0-34.0); Mean Corpuscular Hgb Conc 34.1 g/dL (32.0-36.0); Mean Corpuscular Volume 86.4 fL (80.0-100.0); Mean Platelet Volume 9.9 fL (9.4-12.4); Platelet Count 216 K/uL (130-400); RDW Coefficient of Variation 12.4 % (11.5-14.5); RDW Standard Deviation 39.3 fL (36.4-46.3); Red Blood Count 5.09 M/uL (4.70-6.10); White Blood Count 6.92 K/ul (4.8-10.8)
[2022-05-19 07:14] LABS: BUN Creatinine Ratio 14.9 (10-20); Calcium 9.2 mg/dl (8.6-10.3); Creatinine Clr Calc Pharmacy 196.7 ml/min; Est GFR (African American) 127.3 ml/min; Est GFR (Non-African American) 109.8 ml/min; Magnesium 2.2 mg/dl (1.7-2.4); Potassium 3.7 mmol/L (3.5-5.1)
[2022-05-19] MEDS ORDERED: POTASSIUM CHLORIDE CRTAB 20 MEQ TABCR PO STA ×2 (08:13→10:55)
[2022-05-19] MEDS ORDERED: FUROSEMIDE 40 MG TAB PO ONE (08:13)
--- NOTE | 2022-05-19 08:14 | Hospitalist Progress Note ---
Date of Service May 19, 2022 Assessment & Plan (1) Cellulitis of leg, right: Plan: 46-year-old male with history of newly diagnosed diabetes presenting with right lower extremity cellulitis. Patient is afebrile, nontoxic in appearance. He reports that the redness, swelling and tenderness of his right lower extremity has worsened despite being on oral doxycycline. He also reports small abscesses on his LE which have broken open - purulent fluid. Patient reported having old rx for DOxy, taking. Seen at [place], abscess not yet broken open but US performed reportedly and given Doxy for abscess and told good penetration. (prior cx w/ pseudomonas/Group B strep in 2019 from R foot, possible needed pseudomonal coverage?) Remains on Dapto/Cefepime ESR 30, CRP 1.24 CT obtained, no drainable abscess/fluid collection WBC wnl, afebrile Blood cultures pending Asked RN to culture drainage from RLE -- staph species on preliminary , monitor Marked area cellulitis, within markings, MUCH improved Continue elevation--has been improving w/ such Given dose of Lasix 40mg PO x 1 this morning w/ supplemental O2 -- swelling improving w/ such -- Cr stable and monitor/additional dosing to help w/ swelling/wound healing Pain control -- added gabapentin 100mg TID -- can continue at d/c (prior taking for back) Monitor labs/cultures in AM -- patient hopeful to go home. Will need new PCP at d/c (2) Diabetes: Plan: Patient with newly diagnosed diabetes approximately 1 year ago., BSGs in 230s at that time and quit soda/ice cream and recently running in 120s per patient. Has been using OTC like cinnamon to help w/ regulation, not on any rx meds A1c 6.0 on AM labs Lipid panel w/ excellent control -- TRG 35, Chol 80, HDL 31 DM educator consulted --> new meter provided, will need rx at d/c for: 1.) OneTouch Verio Test Strips to check 1x/day. (100 strips/90 days) 2.) OneTouch Delica Lancets 33 gauge to check 2x/day. (100 lancets/90 days). Will ask CM to assist with arranging new PCP in follow up (lives in [place], of note just passed from [place] [facility] - may need to consider SSRI/remeron/etc) Consider GLP-1 for weight loss benefits at d/c vs f/u new PCP at d/c (3) Sleep apnea: Plan: Patient does not use CPAP rec f/u outpatient/treatment as indicated (4) HTN (hypertension): Plan: BP 127/74 currently and stable (elevated on admit in setting of pain -- 159/94) Doesn't take any meds at baseline -- monitor/will need new PCP. No significant LVH on admitting EKG Plan continued inpatient stay on abx/monitor cultures patient hopeful for d/c tomorrow CM to assist w/ arranging new PCP Admission and Anticipated Discharge Date Admission Date: May 17, 2022 Supervising Physician Co-Signing Physician Notes The patient was not seen by me. The chart was reviewed. Case discussed with ZEINAB Odonnell. Agree with assessment and plan Subjective eval this morning, reviewed CT w/o concerns for deeper infection patient reports decreased discomfort. leg elevated, given lasix this morning and discussed monitoring cultures which are not yet finalized. planning to keep until finalized/monitor blood cultures and hopefully able to arrange for dc tomorrow. Cm to assist w/ getting new PCP. Questions/concerns addressed at this time. Physical Exam Physical Exam: General: WD/WN obese male sleeping upon entry, NAD HEENT: head normocephalic, atraumatic Resp: diminished in bases, no w/c, on room air, speaking in complete sentences, no distress CV: RRR, no significant m/r/g, LE edema (RLE>LLE edema 2nd to cellulitis MUCH improved, pulses palpable but diminished in setting of swelling) GI: +BS, obese, nontender : no mcgowan MSK/Neuro/skin: no focal deficit, no facial droop/slurred speech RLE with swelling, violaceous color surrounding multiple wounds -- 2 opening to anterior [place], and 1 posterior calf (similarly appearing), skin tense/swollen, slight warmth, erythema within markings and MUCH improved, decreased tenderness Psych: AOx3, pleasant and cooperative with care but disappointed about staying Results & Data Results & Data Vital Signs (Past 12 Hours) Vital Signs Temp Pulse Resp BP Pulse Ox O2 Del Method 05/19/22 07:44 36.7 C 66 20 127/74 96 Room Air 05/18/22 22:28 36.8 C 68 18 161/87 H 96 Room Air Laboratory Results 05/19/22 05/19/22 05/19/22 Range/Units 08:18 06:06 06:06 WBC 6.92 (4.8-10.8) K/ul RBC 5.09 (4.70-6.10) M/uL Hgb 15.0 (14.0-18.0) g/dl Hct 44.0 (42.0-52.0) % MCV 86.4 (80.0-100.0) fL MCH 29.5 (25.0-34.0) pg MCHC 34.1 (32.0-36.0) g/dL RDW Std Deviation 39.3 (36.4-46.3) fL RDW Coeff of [place]rado 12.4 (11.5-14.5) % Plt Count 216 (130-400) K/uL MPV 9.9 (9.4-12.4) fL Sodium 139 (136-145) mmol/L Potassium 3.7 (3.5-5.1) mmol/L Chloride 106 (98-107) mmol/L Carbon Dioxide 26 (21-32) mmol/L Anion Gap 7 (3-11) BUN 11 (6-23) mg/dl Creatinine 0.74 (0.6-1.4) mg/dl Est Cr Clr Drug Dosing 196.7 ml/min Est GFR ( Amer) 127.3 ml/min Est GFR (Non-Af Amer) 109.8 ml/min BUN/Creatinine Ratio 14.9 (10-20) Glucose 92 (70-99(Fasting)) mg/dl POC Glucose 96 (70-99) mg/dl Calcium 9.2 (8.6-10.3) mg/dl Magnesium 2.2 (1.7-2.4) mg/dl 05/18/22 05/18/22 05/18/22 Range/Units 21:07 17:21 12:05 WBC (4.8-10.8) K/ul RBC (4.70-6.10) M/uL Hgb (14.0-18.0) g/dl Hct (42.0-52.0) % MCV (80.0-100.0) fL MCH (25.0-34.0) pg MCHC (32.0-36.0) g/dL RDW Std Deviation (36.4-46.3) fL RDW Coeff of [place]rado (11.5-14.5) % Plt Count (130-400) K/uL MPV (9.4-12.4) fL Sodium (136-145) mmol/L Potassium (3.5-5.1) mmol/L Chloride (98-107) mmol/L Carbon Dioxide (21-32) mmol/L Anion Gap (3-11) BUN (6-23) mg/dl Creatinine (0.6-1.4) mg/dl Est Cr Clr Drug Dosing ml/min Est GFR ( Amer) ml/min Est GFR (Non-Af Amer) ml/min BUN/Creatinine Ratio (10-20) Glucose (70-99(Fasting)) mg/dl POC Glucose 96 111 H 117 H (70-99) mg/dl Calcium (8.6-10.3) mg/dl Magnesium (1.7-2.4) mg/dl Diagnostic Findings Lower Extremity CT 05/18/22 12:46 CT SCAN OF THE RIGHT TIBIA AND FIBULA WITH IV CONTRAST CLINICAL HISTORY: Cellulitis. COMPARISON STUDY: No priors. TECHNIQUE: Following the administration of 84 cc of Optiray 350, CT scan of the right tibia and fibula is performed from the distal femur to the foot. Images are reviewed in the axial, sagittal, and coronal planes. IV contrast was administered without complication. A dose lowering technique was utilized adhering to the principles of ALARA. CT DOSE: 289.01 mGy.cm FINDINGS: The skeletal structures are well-mineralized. There is no evidence of right tibial or fibular fracture. There is no bony erosion or periostitis. The knee and ankle joints are grossly maintained. There is no knee joint effusion. Subcutaneous soft tissue edema and fluid is seen throughout the right lower extremity. No organized/drainable fluid collection is seen to indicate abscess. The regional arteries are patent as visualized. The Achilles tendon is intact as seen by CT. There is mild generalized atrophy of the regional musculature. No soft tissue gas is seen. Phleboliths are noted in the anterior calf. IMPRESSION: 1. No acute bony abnormality is seen involving the right tibia or fibula. 2. There is evidence of cellulitis throughout the right lower extremity. 3. No organized/drainable fluid collection is seen to suggest abscess. ACT 112: Negative or not required by law. Electronically signed by: Gonzales Bates M.D. 05/18/2022 5:41 PM PG Care Time/CCT Total # of Minutes Spent Total Time Spent with Patient: Total time spent is greater than 50% in coordination of care (as documented) at patient's floor/unit and/or counseling patient: Coding Level of Care Code 61440 SUB INP/OBS CARE 3/50MIN Diagnoses Cellulitis of leg, right L03.115 Diabetes E11.9 Sleep apnea G47.30 HTN (hypertension) I10
[2022-05-19] MEDS: CEFEPIME 2,000 MG in SYRINGE 0 ML IV SCH ×2 (10:27→21:17)
[2022-05-19] MEDS: GABAPENTIN 100 MG CAP PO SCH ×3 (10:28→21:17)
[2022-05-19] MEDS: DAPTOmycin 450 MG in SYRINGE 0 ML IV SCH (21:17)
[2022-05-19] MEDS: ACETAMINOPHEN 325 MG TAB PO PRN (21:17)
[2022-05-20 08:43] LABS: Hematocrit (blood only) 46.3 % (42.0-52.0); Hemoglobin 15.8 g/dl (14.0-18.0); Mean Corpuscular Hgb Conc 34.1 g/dL (32.0-36.0); Mean Corpuscular Volume 87.9 fL (80.0-100.0); Mean Platelet Volume 9.8 fL (9.4-12.4); Platelet Count 235 K/uL (130-400); RDW Coefficient of Variation 12.5 % (11.5-14.5); RDW Standard Deviation 39.8 fL (36.4-46.3); Red Blood Count 5.27 M/uL (4.70-6.10); White Blood Count 7.24 K/ul (4.8-10.8)
[2022-05-20] MEDS: CEFEPIME 2,000 MG in SYRINGE 0 ML IV SCH (08:55)
[2022-05-20] MEDS: GABAPENTIN 100 MG CAP PO SCH ×2 (08:55→13:31)
[2022-05-20 09:13] LABS: BUN Creatinine Ratio 16.5 (10-20); Calcium 9.3 mg/dl (8.6-10.3); Creatinine Clr Calc Pharmacy 171.2 ml/min; Est GFR (African American) 120.3 ml/min; Est GFR (Non-African American) 103.8 ml/min; Magnesium 2.3 mg/dl (1.7-2.4); Potassium 3.9 mmol/L (3.5-5.1)
--- NOTE | 2022-05-20 12:09 | Discharge Summary ---
Date of Service May 20, 2022 Admission HPI Per Admitting Provider Wali Pearson is a 46yo male with history of HTN, Asthma, newly diagnosed DM presenting with RLE cellulitis. Patient gets frequent tinea pedis infections. He reports that when he has a tinea infection he frequently develops cellulitis in his RLE. Patient has had several days of worsening RLE warmth, redness and swelling. He reports developing a small abscess on his posterior calf. He was seen at [facility] approximate 2 and half weeks ago and was prescribed antibioticdoxycycline, which he has taken. He reports developing several more abscesses that opened and drained a small amount of purulent liquid. as prescribed patient denies trauma to the leg. Denies fever, chills, nausea, malaise. Denies chest pain, shortness of breath, cough. No additional complaints at this time. Concerned that his cellulitis is worsening despite treatment with doxycycline Patient was recently diagnosed with type 2 diabetes approximately 1 year ago. He reports he has been prescribed metformin which she does not take. He has been using cinnamon supplements and changing his diet in hopes to control his blood sugar. He has not seen his PCP for some time. Reports he has not received education on his diabetes management. In the ER, he is afebrile hemodynamically stable and nontoxic in appearance. ER course: Daptomycin Cefepime Admission Exam Per Admitting Provider General: patient resting comfortably, NAD, non-toxic in appearance, AA&O x 4 HEENT: NC/AT, PERRL, EOMI, anicteric sclera, conjunctiva without injection, ext ernal ear normal to inspection and nontender, nares patent, moist mucus membranes, dentition intact, no oropharyngeal lesions, neck supple, trachea midline, no LAD, no thyromegaly, no JVD Heart: +S1/S2, regular, no m/r/g Lungs: equal air entry bilaterally, no rales/rhonchi/wheezes Abd: +BS, soft, NT/ND, no masses/organomegaly/ascites Ext: warm, 2+ pulses in UE/LE bilaterally, no clubbing/cyanosis. Trace edema of bilateral lower extremities, right lower extremity red, warm and tender to the touch.No crepitus, bullae or lymphangitis Neuro: nonfocal, patient AA&O x 4, speech intact, no facial droop, moving all extremities on command with equal strength 5/5 Principal Diagnosis Cellulitis Right leg Discharge Exam Constitutional WD/WN, vitals as above Respiratory normal respiratory effort, lungs clear to auscultation Cardiovascular RRR, no murmur, no edema Extremities: + edema; no calf tenderness Gastrointestinal (Abdomen) normal bowel sounds, soft, nontender, no hepatosplenomegaly Skin Right lower leg warm and erythematous per patient is improved from admission. Cutaneous candidiasis under left pectoralis area Psychiatric A+Ox3, euthymic affect Discharge Data Allergies Allergy/AdvReac Type Severity Reaction Status Date / Time clindamycin Allergy Mild HIVES Verified 05/22/22 12:34 Consultations 05/17/22 20:25 ED Decision to Admit Stat Ordered Studies 05/18/22 12:46 CT leg [CT tib/fib RT w con] Urgent IMPRESSION: 1. No acute bony abnormality is seen involving the right tibia or fibula. 2. There is evidence of cellulitis throughout the right lower extremity. 3. No organized/drainable fluid collection is seen to suggest abscess. Hospital Course (1) Cellulitis of leg, right: 46-year-old male with history of newly diagnosed diabetes presenting with right lower extremity cellulitis. Patient is afebrile, nontoxic in appearance. He reports that the redness, swelling and tenderness of his right lower extremity has worsened despite being on oral doxycycline. He also reports small abscesses on his LE which have broken open - purulent fluid. Patient reported having old rx for DOxy, taking. Seen at [place], abscess not yet broken open but US performed reportedly and given Doxy for abscess and told good penetration. (prior cx w/ pseudomonas/Group B strep in 2019 from R foot, possible needed pseudomonal coverage?) Remained on Dapto/Cefepime ESR 30, CRP 1.24 CT obtained, no drainable abscess/fluid collection WBC wnl, afebrile Blood cultures pending Asked RN to culture drainage from RLE -- MRSA Sensitive to Bactrim DS Marked area cellulitis, within markings, MUCH improved Continue elevation--has been improving w/ such -- swelling improving w/ such -- Cr stable and monitor/additional dosing to help w/ swelling/wound healing Pain control -- added gabapentin 100mg TID -- can continue at d/c (prior taking for back) D/C to home today Will need new PCP at d/c - CM working on getting set up with new PCP (2) Diabetes: Patient with newly diagnosed diabetes approximately 1 year ago., BSGs in 230s at that time and quit soda/ice cream and recently running in 120s per patient. Has been using OTC like cinnamon to help w/ regulation, not on any rx meds A1c 6.0 on AM labs Lipid panel w/ excellent control -- TRG 35, Chol 80, HDL 31 DM educator consulted --> new meter provided, will need rx at d/c for: 1.) OneTouch Verio Test Strips to check 1x/day. (100 strips/90 days) 2.) OneTouch Delica Lancets 33 gauge to check 2x/day. (100 lancets/90 days). Will ask CM to assist with arranging new PCP in follow up (lives in [place], [place] just passed from covid - may need to consider SSRI/remeron/etc) Consider GLP-1 for weight loss benefits at d/c vs f/u new PCP at d/c (3) Sleep apnea: Patient does not use CPAP rec f/u outpatient/treatment as indicated (4) HTN (hypertension): BP 119/73 currently and stable (elevated on admit in setting of pain -- 159/94) Doesn't take any meds at baseline -- monitor/will need new PCP. No significant LVH on admitting EKG Plan CM to assist w/ arranging new PCP Total Time Total Time Spent Total Time Spent (In Minutes): 40 Discharge Plan Discharge Items Patient Disposition: Home - Self-Care Reason For Visit: CELLULITUS Discharge Diagnosis: MRSA cellulitis Condition on Discharge: Fair Activity: Resume your previous activity Lifting: Gradually increase as tolerated Exercise/Sports: Gradually increase as tolerated Weightbearing: Full weightbearing Non-emergency contact: Primary Care Provider Call non-emergency contact if: you have any medication questions, your symptoms worsen, your pain is concerning for you, you have a fever, your wound has increased redness and your wound has increased drainage Follow-up/Referrals: Ugo Swann MD [Primary Care Provider] - 05/27/22 2:05 pm Diet: Carb Consistent or DM2 and Low Sodium (2gm) Addtl Attending Provider Instructions: You were admitted with a skin infection of your right leg that had failed outpatient doxycycline. A culture of the wound revealed MRSA (methylene resistant Staph) the bacteria is sensitive to the IV antibiotic you received in the hospital and is also sensitive to Bactrim and this will be rx at discharge. The bacteria was NOT sensitive to the doxycycline that you were taking priot to coming to the hospital. You should continue to follow a diabetic diet and also may want to discuss a new medication for your diabetes (GLP-1 ) This class of medication may alsoo aid in some weight loss Also should follow up with your family doctor and keep record of your blood pressure and it would also be beneficial to follow a low sodium diet. You should follow up with family doctor in 10 days Your cellulitis will need rechecked to see if your antibiotics will need extended. Pending Studies at Discharge: No Visit Report Forms: Smoking Cessation Stand-Alone Forms: [facility] [employer], Smoking Cessation Medications and DC Order Prescriptions: New gabapentin 100 mg Capsule 100 mg PO TID Qty: 90 0RF sulfamethoxazole-trimethoprim [Bactrim DS] 800-160 mg tablet 1 tab PO BID Qty: 20 0RF clotrimazole-betamethasone 1-0.05 % cream 1 applic topical BID 14 Days Qty: 15 0RF Rx Instructions: apply small amount BID to area on chest (DME) lancets [OneTouch Delica Lancets] 33 gauge misc See Rx Instructions .Route Qty: 100 0RF Rx Instructions: As directed (DME) OneTouch Verio test strips Strip See Rx Instructions .Route Qty: 100 0RF Rx Instructions: As directed No Action omega 2-qgc-unx-fish oil [Fish Oil] 300-1,000 mg capsule 1 cap PO DAILY Discharge Orders: Discharge Order (Routine); Ordered 05/20/22 Ordered By: Tess Andrade/Other Patient Handouts: High Blood Sugar (Hyperglycemia), Hypoglycemia (Low Blood Sugar), Preventing Deep Vein Thrombosis, Cellulitis Dc, MRSA, Diabetes: Meal Planning, Type 2 Diabetes Admission Data Admit Date/Time: 05/17/22 20:56 Attending Provider: Timmy Braswell Admit Provider: Sanaz Wright Primary Care Provider: Ugo Swann Other Providers: Sanaz Wright Other Interventions: Discharge Summary Assessment (RN) Last Done: 05/20/22 13:22 Supervising Physician Co-Signing Physician Notes During face to face encounter, I obtained a brief physical examination, discussed hospital stay with patient and discharge instructions with patient. I discussed discharge plan of care with ANTOINETTE Skelton. I reviewed above note and agree with it except for the following: Patient admitted for cellulitis, Patient will be discharged on bactrim. Coding Level of Care Code 01138 INP/OBS DISCH >30 MIN Diagnoses Cellulitis of leg, right L03.115 Diabetes E11.9 Sleep apnea G47.30 HTN (hypertension) I10 Time Spent (min) 40
== END 2022-05-20 14:27 | disposition home or self-care (01) ==
LOC: ED 15:35 → 3W 15:35 → SUATTDRO 20:56 → 3W 22:30
DX: G47.30 Sleep apnea, unspecified; Z88.1 Allergy status to other antibiotic agents; I10 Essential (primary) hypertension; E11.9 Type 2 diabetes mellitus without complications; L03.115 Cellulitis of right lower limb; A49.02 Methicillin resistant Staphylococcus aureus infection, unspecified site